=== PATIENT | male | born 1990 | race African-American/Black ===

== ENCOUNTER 2020-09-03 15:02 | Outpatient (REF) | payer OTHER, SELFPAY | END 2020-09-03 15:03 | disposition home or self-care (01) | LOC: HO.LAB 15:02 | PROVIDERS: Visit Provider Internal Medicine | DX: Z20.828 Contact with and (suspected) exposure to other viral communicable diseases (principal) | CPT/HCPCS: 87635 ==

== ENCOUNTER → 2025-01-27 09:50 | Outpatient (BNVA) | payer OTHER, SELFPAY | PROVIDERS: Visit Provider Physician Assistant Medical | DX: S50.872A Other superficial bite of left forearm, initial encounter (principal); W50.3XXA Accidental bite by another person, initial encounter; Z02.79 Encounter for issue of other medical certificate | CPT/HCPCS: 99202 ==